=== PATIENT | male | born 1995 | race Caucasian/White ===

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

== ENCOUNTER 2017-12-31 12:06 | Emergency (ER) | payer MEDICAID, OTHER ==
[~2017-12-31] VITALS: Ht 180.3 cm; Wt 105.0 kg
[2017-12-31 12:13] VITALS: BP 141/86
[2017-12-31] MEDS ORDERED: DIPH,PERTUSS(ACELL),TET VAC/PF 0.5 ML IM-VACC ONE ×2 (12:30→13:00)
[2017-12-31] MEDS ORDERED: HYDROcodone/APAP 5/325 TABLET PO ONE (12:30)
[2017-12-31] MEDS ORDERED: HYDROcodone/APAP 5/325 TABLET ONE (12:59)
[2017-12-31] MEDS ORDERED: BACITRACIN ZINC OINT 500U/GM, 0.9 GM ONE (13:05)
== END 2017-12-31 13:19 | disposition home or self-care (01) ==
LOC: ED 13:13
DX: L03.011 Cellulitis of right finger (principal); F17.200 Nicotine dependence, unspecified, uncomplicated
CPT/HCPCS: 29125; 90471; 90715; 99284

== ENCOUNTER 2019-10-25 16:55 | Emergency (ER) | payer OTHER ==
[~2019-10-25] VITALS: Ht 180.3 cm; Wt 102.3 kg
[2019-10-25 16:57] VITALS: BP 126/81
[2019-10-25] MEDS ORDERED: IBUPROFEN 100 MG/5 ML UDC PO ONE (17:30)
[2019-10-25] MEDS ORDERED: DEXAMETHASONE 4 MG TABLET PO ONE (19:00)
[2019-10-25] MEDS ORDERED: DEXAMETHASONE 4 MG TABLET ONE (19:02)
== END 2019-10-25 19:27 | disposition home or self-care (01) ==
LOC: ED 19:18
DX: R50.9 Fever, unspecified (principal); Z20.828 Contact with and (suspected) exposure to other viral communicable diseases; J02.8 Acute pharyngitis due to other specified organisms; B97.89 Other viral agents as the cause of diseases classified elsewhere
CPT/HCPCS: 36415; 87081; 87635; 87880; 99283